=== PATIENT | male | born 1965 | race Two or more races ===

== ENCOUNTER 2021-03-10 11:14 | Inpatient (IN) | payer MEDICAID, OTHER ==
[~2021-03-10] VITALS: Ht 165.1 cm; Wt 64.0 kg
[2021-03-10] MEDS ORDERED: ASPirin 81 mg TAB PO ONE (11:45)
[2021-03-10 12:33] LABS: Basophils # (auto) 0 10 ^3/uL (0-0.2); Basophils % (auto) 0.6 % (0.0-2.0); Eosinophils # (auto) 0.2 10 ^3/uL (0-0.8); Eosinophils % (auto) 3.1 % (0.0-7.0); Hematocrit 46.5 % (41.0-53.0); Hemoglobin 16.4 g/dL (13.5-17.5); Lymphocytes # (auto) 3.1 10 ^3/uL (0.4-5.4); Lymphocytes % (auto) 39.9 % (10.0-50.0); Mean Corpuscular Hemoglobin 32.8 pg (28.0-32.0); Mean Corpuscular Hgb Conc. 35.3 g/dL (32.0-36.0); Mean Corpuscular Volume 92.9 fL (80.0-100.0); Monocytes # (auto) 0.5 10 ^3/uL (0-1.3); Monocytes % (auto) 6.1 % (0.0-12.0); Neutrophils % (auto) 50.3 % (37.0-80.0); Nucleated Red Blood Cells % 0.2 %; Red Cell Distribution Width 12.8 % (11.8-14.3); White Blood Cell 7.9 10^3/uL (4.4-10.8)
[2021-03-10 12:44] LABS: Albumin 3.2 g/dL (3.4-5.0); Calcium 8.6 mg/dL (8.5-10.1); Magnesium 2.3 mg/dL (1.6-2.6); Potassium 4.2 mmol/L (3.5-5.1)
[2021-03-10 12:52] LABS: BUN/Creatinine Ratio 17.6; Bilirubin, Total 0.4 mg/dL (0.2-1.0); Total Protein 7.5 g/dL (6.4-8.2)
[2021-03-10] MEDS ORDERED: NITROGLYCERIN 0.4 MG SL TAB SL PRN (13:45)
[2021-03-10] MEDS ORDERED: hydrALAZINE HCL 20 MG/ML VL IV PRN (13:45)
[2021-03-10] MEDS ORDERED: ACETAMINOPHEN 500 MG TAB PO PRN (13:45)
[2021-03-10] MEDS ORDERED: HYDROcodone-ACET 5/325MG TAB PO PRN (13:45)
[2021-03-10] MEDS ORDERED: MORPHINE SULFATE INJECTION 2 MG/ML SYRG IV ONE ×2 (13:45)
[2021-03-10] MEDS ORDERED: NITROGLYCERIN 0.4 MG SL TAB SL ONE ×2 (13:45)
[2021-03-10] MEDS ORDERED: ONDANSETRON HCL 4 MG/2 ML VIAL IV PRN (13:45)
[2021-03-10] MEDS ORDERED: NITROGLYCERIN 0.4MG/HR TOPICAL PATCH TD ONE (13:45)
[2021-03-10] MEDS ORDERED: MORPHINE SULFATE INJECTION 2 MG/ML SYRG IV PRN ×2 (13:45)
[2021-03-10] MEDS: HEPARIN SODIUM (PORCINE) 5000 UNITS/ML 1ML VIAL IV ONE ×2 (14:15→15:32)
[2021-03-10] MEDS ORDERED: CLOPIDOGREL 300 MG TAB PO ONE (14:45)
[2021-03-10 15:03] LABS: Partial Thromboplastin Time 26.5 sec (23.6-33.0)
[2021-03-10 15:27] LABS: Cholesterol 211 mg/dL (< 200)
[2021-03-10 15:30] LABS: HDL Cholesterol 38 mg/dL (40-59); LDL Cholesterol 113 mg/dL (< 100); Triglycerides 371 mg/dL (< 150)
[2021-03-10] MEDS: HEPARIN DRIP/D5W 100UNITS/ML 250 ML IV SCH (15:32)
[2021-03-10] MEDS: ATORVASTATIN 20 MG TAB PO SCH (22:49)
[2021-03-10] MEDS: METOPROLOL TARTRATE 25 MG TAB PO SCH (22:51)
[2021-03-10 22:55] LABS: INR 1.04 (0.9-1.15); Partial Thromboplastin Time 69.7 sec (23.6-33.0)
[2021-03-10 23:48] VITALS: BP 125/86
[2021-03-11] MEDS ORDERED: INFLUENZA QUAD 2021-2022 0.5 ML SYRG IM ONE (00:15)
[2021-03-11 04:46] VITALS: BP 110/64
[2021-03-11 05:43] LABS: Basophils # (auto) 0 10 ^3/uL (0-0.2); Basophils % (auto) 0.6 % (0.0-2.0); Eosinophils # (auto) 0.2 10 ^3/uL (0-0.8); Eosinophils % (auto) 2.7 % (0.0-7.0); Hematocrit 43.1 % (41.0-53.0); Hemoglobin 14.8 g/dL (13.5-17.5); Lymphocytes # (auto) 3.3 10 ^3/uL (0.4-5.4); Lymphocytes % (auto) 39.5 % (10.0-50.0); Mean Corpuscular Hgb Conc. 34.3 g/dL (32.0-36.0); Mean Corpuscular Volume 93.1 fL (80.0-100.0); Monocytes # (auto) 0.5 10 ^3/uL (0-1.3); Monocytes % (auto) 6.2 % (0.0-12.0); Neutrophils # (auto) 4.3 10 ^3/uL (1.6-8.6); Nucleated Red Blood Cells % 0.2 %; Red Blood Cells 4.63 10^6/uL (4.5-5.90); Red Cell Distribution Width 12.8 % (11.8-14.3); White Blood Cell 8.5 10^3/uL (4.4-10.8)
[2021-03-11 06:19] LABS: Potassium 3.7 mmol/L (3.5-5.1)
[2021-03-11 06:25] LABS: BUN/Creatinine Ratio 25.8; Calcium 8.1 mg/dL (8.5-10.1)
[2021-03-11 07:32] LABS: INR 1.01 (0.9-1.15); Partial Thromboplastin Time 49.7 sec (23.6-33.0)
[2021-03-11 08:30] VITALS: BP 117/74
[2021-03-11 09:00] VITALS: BP 117/74
[2021-03-11] MEDS: LISINOPRIL 10 MG TAB PO SCH (10:00)
[2021-03-11] MEDS: METOPROLOL TARTRATE 25 MG TAB PO SCH ×2 (10:00→21:51)
[2021-03-11] MEDS: ASPirin-EC 81 mg tab PO SCH (10:00)
[2021-03-11] MEDS ORDERED: NAPR-505 PO (10:18)
[2021-03-11] MEDS: HEPARIN DRIP/D5W 100UNITS/ML 250 ML IV SCH (13:50)
[2021-03-11] MEDS ORDERED: LIDOCAINE 2%HCL (LOCAL ANESTH.) INJ 20ML MDV ONE (15:29)
[2021-03-11] MEDS ORDERED: IODIXANOL 320MG/ML 100ML BTL IV ONE (15:29)
[2021-03-11] MEDS ORDERED: ANGIOMAX 250 MG VIAL IV ONE (16:30)
[2021-03-11] MEDS ORDERED: MIDAZOLAM HCL 2MG/2ML 2ml VIAL (1mg/ml) ONE (16:31)
[2021-03-11] MEDS ORDERED: fentaNYL CITRATE 100 MCG/2 ML VL ONE (16:31)
[2021-03-11] MEDS ORDERED: SODIUM CHL 0.9% 0 ML ONE (16:31)
[2021-03-11] MEDS ORDERED: VERAPAMIL 2.5MG/ML INJ 2ML VIAL IV ONE (16:31)
[2021-03-11] MEDS ORDERED: IOHEXOL 350 MG/ML 100ML IJ ONE ×2 (16:31→17:25)
[2021-03-11] MEDS ORDERED: CLOPIDOGREL BISULFATE 75 MG TAB ONE (17:28)
[2021-03-11] MEDS ORDERED: ASPirin 81 mg TAB ONE (17:28)
[2021-03-11 21:33] VITALS: BP 126/82
[2021-03-11] MEDS: ATORVASTATIN 20 MG TAB PO SCH (21:51)
[2021-03-12 04:41] VITALS: BP 104/70
[2021-03-12 09:00] VITALS: BP 106/64
[2021-03-12] MEDS: METOPROLOL TARTRATE 25 MG TAB PO SCH (09:21)
[2021-03-12] MEDS: ASPirin-EC 81 mg tab PO SCH (09:21)
[2021-03-12] MEDS: LISINOPRIL 10 MG TAB PO SCH (09:22)
[2021-03-12] MEDS ORDERED: CLOPIDOGREL BISULFATE 75 MG TAB PO SCH (10:00)
[2021-03-12 13:00] VITALS: BP 121/70
[2021-03-12 13:30] VITALS: BP 121/70
== END 2021-03-12 16:35 | disposition home or self-care (01) | DRG 174 ==
LOC: ER 11:14 → EDBD 11:14 → TELE 13:44 → TELE-WESTW 21:03
PROVIDERS: ADMIT Nurse Practitioner Acute Care; ATTEND Family Medicine
PROC: 4A023N7 Measurement of Cardiac Sampling and Pressure, Left Heart, Percutaneous Approach (ICD-10-PCS; principal; 2021-03-11)
PROC: 027136Z Dilation of Coronary Artery, Two Arteries with Three Drug-eluting Intraluminal Devices, Percutaneous Approach (ICD-10-PCS; 2021-03-11)
PROC: B2111ZZ Fluoroscopy of Multiple Coronary Arteries using Low Osmolar Contrast (ICD-10-PCS; 2021-03-11)
PROC: B2151ZZ Fluoroscopy of Left Heart using Low Osmolar Contrast (ICD-10-PCS; 2021-03-11)
DX: I21.4 Non-ST elevation (NSTEMI) myocardial infarction (principal); E44.1 Mild protein-calorie malnutrition; E66.9 Obesity, unspecified; I10 Essential (primary) hypertension; E11.65 Type 2 diabetes mellitus with hyperglycemia; E78.5 Hyperlipidemia, unspecified; I25.10 Atherosclerotic heart disease of native coronary artery without angina pectoris; Z68.29 Body mass index [BMI] 29.0-29.9, adult; Z20.822 Contact with and (suspected) exposure to COVID-19
CPT/HCPCS: 36415; 71046; 80048; 80053; 80061; 82565; 83036; 83735; 83880; 84443; 84484; 84520; 85025; 85610; 85730; 86141; 86850; 86900; 86901; 87426; 92928; 92929; 93005; 93306; 93458; 96365; 96375; 99152; 99153; 99291; C1874; C1887; G0378; J2250; Q9967

== ENCOUNTER 2021-03-14 12:40 | Inpatient (IN) | payer MEDICAID, OTHER ==
[~2021-03-14] VITALS: Ht 165.1 cm; Wt 69.6 kg
[~2021-03-14 12:40] MED LIST: NAPR-505 PO
[2021-03-14] MEDS ORDERED: SODIUM CHLORIDE 0.9% 1,000 ML IV ONE (13:30)
[2021-03-14 14:36] LABS: Basophils # (auto) 0.1 10 ^3/uL (0-0.2); Basophils % (auto) 0.6 % (0.0-2.0); Eosinophils # (auto) 0.2 10 ^3/uL (0-0.8); Hematocrit 45.2 % (41.0-53.0); Hemoglobin 15.4 g/dL (13.5-17.5); Lymphocytes # (auto) 3.5 10 ^3/uL (0.4-5.4); Lymphocytes % (auto) 35.9 % (10.0-50.0); Mean Corpuscular Hemoglobin 31.9 pg (28.0-32.0); Mean Corpuscular Volume 93.8 fL (80.0-100.0); Monocytes # (auto) 0.7 10 ^3/uL (0-1.3); Monocytes % (auto) 7.6 % (0.0-12.0); Neutrophils # (auto) 5.2 10 ^3/uL (1.6-8.6); Neutrophils % (auto) 53.9 % (37.0-80.0); Nucleated Red Blood Cells % 0.1 %; Red Blood Cells 4.82 10^6/uL (4.5-5.90); Red Cell Distribution Width 12.9 % (11.8-14.3); White Blood Cell 9.7 10^3/uL (4.4-10.8)
[2021-03-14 14:40] LABS: Urine Bacteria NONE SEEN /hpf (None Seen); Urine Blood Negative /uL (Negative); Urine Specific Gravity 1.031 (1.001-1.035); Urine WBC <1 /hpf (0 - 3)
[2021-03-14 14:53] LABS: Albumin 2.6 g/dL (3.4-5.0); Calcium 8.2 mg/dL (8.5-10.1); Magnesium 2.1 mg/dL (1.6-2.6); Potassium 3.9 mmol/L (3.5-5.1)
[2021-03-14 14:56] LABS: BUN/Creatinine Ratio 21.6; Bilirubin, Total 0.5 mg/dL (0.2-1.0); Total Protein 7.1 g/dL (6.4-8.2)
[2021-03-14] MEDS ORDERED: ASPirin 81 mg TAB PO ONE (18:00)
[2021-03-14] MEDS ORDERED: NITROGLYCERIN 0.4 MG SL TAB SL PRN (18:45)
[2021-03-14] MEDS ORDERED: DEXTROSE (50%) 50ML SYRG IV PRN (18:45)
[2021-03-14] MEDS ORDERED: ACETAMINOPHEN 500 MG TAB PO PRN (18:45)
[2021-03-14] MEDS ORDERED: ONDANSETRON HCL 4 MG/2 ML VIAL IV PRN (18:45)
[2021-03-14] MEDS ORDERED: hydrALAZINE HCL 20 MG/ML VL IV PRN (18:45)
[2021-03-14] MEDS ORDERED: HYDROcodone-ACET 5/325MG TAB PO PRN (18:45)
[2021-03-14] MEDS ORDERED: MORPHINE SULFATE INJECTION 2 MG/ML SYRG IV PRN ×2 (18:45)
[2021-03-14] MEDS: InsuLIN REG 1unit/0.01ml Soln (100units/ml) SC SCH (22:00)
[2021-03-14] MEDS: METOPROLOL TARTRATE 25 MG TAB PO SCH (22:09)
[2021-03-14] MEDS: ATORVASTATIN 20 MG TAB PO SCH (22:09)
[2021-03-14] MEDS: ACCU-CHEK COMFORT CURVE STRIP VI SCH (22:10)
[2021-03-15] VITALS (7 sets, daily range): BP systolic 113–130; BP diastolic 68–82
[2021-03-15] MEDS ORDERED: CLOP75TA28 PO (02:16)
[2021-03-15] MEDS ORDERED: ATO40T PO (02:16)
[2021-03-15] MEDS ORDERED: METF-929 PO (02:16)
[2021-03-15] MEDS ORDERED: METO25TA5 PO (02:16)
[2021-03-15] MEDS ORDERED: LISI-716 PO (02:16)
[2021-03-15] MEDS ORDERED: ASPI-543 PO (02:16)
[2021-03-15 06:07] LABS: Basophils # (auto) 0.1 10 ^3/uL (0-0.2); Basophils % (auto) 0.6 % (0.0-2.0); Eosinophils # (auto) 0.3 10 ^3/uL (0-0.8); Hematocrit 40.3 % (41.0-53.0); Hemoglobin 13.7 g/dL (13.5-17.5); Lymphocytes # (auto) 3.1 10 ^3/uL (0.4-5.4); Lymphocytes % (auto) 35.5 % (10.0-50.0); Mean Corpuscular Hemoglobin 32.1 pg (28.0-32.0); Mean Corpuscular Volume 94.3 fL (80.0-100.0); Monocytes # (auto) 0.6 10 ^3/uL (0-1.3); Monocytes % (auto) 6.8 % (0.0-12.0); Neutrophils # (auto) 4.7 10 ^3/uL (1.6-8.6); Neutrophils % (auto) 54.1 % (37.0-80.0); Red Blood Cells 4.27 10^6/uL (4.5-5.90); Red Cell Distribution Width 12.8 % (11.8-14.3); White Blood Cell 8.7 10^3/uL (4.4-10.8)
[2021-03-15 06:29] LABS: Calcium 8.2 mg/dL (8.5-10.1); Potassium 4.2 mmol/L (3.5-5.1)
[2021-03-15 06:31] LABS: BUN/Creatinine Ratio 21.6
[2021-03-15] MEDS: ACCU-CHEK COMFORT CURVE STRIP VI SCH ×4 (06:31→21:51)
[2021-03-15] MEDS: InsuLIN REG 1unit/0.01ml Soln (100units/ml) SC SCH ×4 (06:49→21:52)
[2021-03-15] MEDS: ASPirin-EC 81 mg tab PO SCH (09:51)
[2021-03-15] MEDS: LISINOPRIL 10 MG TAB PO SCH (09:52)
[2021-03-15] MEDS: METOPROLOL TARTRATE 25 MG TAB PO SCH ×2 (09:53→21:51)
[2021-03-15] MEDS ORDERED: CLOPIDOGREL BISULFATE 75 MG TAB PO ONE ×2 (10:00→11:30)
[2021-03-15] MEDS ORDERED: ENOXAPARIN SOD 100 MG/1 ML SYRINGE SC ONE (21:00)
[2021-03-15] MEDS: ATORVASTATIN 20 MG TAB PO SCH (21:50)
[2021-03-16 03:45] LABS: Basophils # (auto) 0.1 10 ^3/uL (0-0.2); Basophils % (auto) 0.6 % (0.0-2.0); Eosinophils # (auto) 0.3 10 ^3/uL (0-0.8); Eosinophils % (auto) 3.4 % (0.0-7.0); Hematocrit 43.5 % (41.0-53.0); Hemoglobin 14.6 g/dL (13.5-17.5); Lymphocytes # (auto) 3.8 10 ^3/uL (0.4-5.4); Lymphocytes % (auto) 41.5 % (10.0-50.0); Mean Corpuscular Hemoglobin 31.9 pg (28.0-32.0); Mean Corpuscular Hgb Conc. 33.6 g/dL (32.0-36.0); Mean Corpuscular Volume 94.8 fL (80.0-100.0); Monocytes # (auto) 0.6 10 ^3/uL (0-1.3); Monocytes % (auto) 6.6 % (0.0-12.0); Neutrophils # (auto) 4.3 10 ^3/uL (1.6-8.6); Neutrophils % (auto) 47.9 % (37.0-80.0); Nucleated Red Blood Cells % 0.2 %; Red Blood Cells 4.58 10^6/uL (4.5-5.90); Red Cell Distribution Width 12.7 % (11.8-14.3); White Blood Cell 9.1 10^3/uL (4.4-10.8)
[2021-03-16 04:05] LABS: Albumin 2.6 g/dL (3.4-5.0); BUN/Creatinine Ratio 18.1; Calcium 8.2 mg/dL (8.5-10.1); Magnesium 2.1 mg/dL (1.6-2.6); Potassium 3.7 mmol/L (3.5-5.1)
[2021-03-16 04:09] LABS: Bilirubin, Total 0.5 mg/dL (0.2-1.0); Phosphorus 4.3 mg/dL (2.5-4.90); Total Protein 6.8 g/dL (6.4-8.2)
[2021-03-16 04:22] LABS: INR 1.05 (0.9-1.15); Partial Thromboplastin Time 34.3 sec (23.6-33.0)
[2021-03-16 05:00] VITALS: BP 115/74
[2021-03-16] MEDS: InsuLIN REG 1unit/0.01ml Soln (100units/ml) SC SCH ×2 (07:00→11:42)
[2021-03-16] MEDS: ACCU-CHEK COMFORT CURVE STRIP VI SCH ×2 (07:03→11:41)
[2021-03-16 09:00] VITALS: BP 107/61
[2021-03-16] MEDS: ASPirin-EC 81 mg tab PO SCH (09:51)
[2021-03-16] MEDS: METOPROLOL TARTRATE 25 MG TAB PO SCH (09:52)
[2021-03-16] MEDS: LISINOPRIL 10 MG TAB PO SCH (09:53)
[2021-03-16] MEDS ORDERED: ENOXAPARIN SOD 100 MG/1 ML SYRINGE SC SCH (10:00)
[2021-03-16] MEDS ORDERED: CLOPIDOGREL BISULFATE 75 MG TAB PO SCH (10:00)
[2021-03-16 13:00] VITALS: BP 113/71
== END 2021-03-16 15:30 | disposition home or self-care (01) | DRG 190 ==
LOC: ER 12:40 → TELE 18:36 → TELE-CENTR 23:31
PROVIDERS: ADMIT Nurse Practitioner Acute Care; ATTEND Internal Medicine
DX: I21.4 Non-ST elevation (NSTEMI) myocardial infarction (principal); E88.09 Other disorders of plasma-protein metabolism, not elsewhere classified; E11.65 Type 2 diabetes mellitus with hyperglycemia; E03.9 Hypothyroidism, unspecified; I25.10 Atherosclerotic heart disease of native coronary artery without angina pectoris; I10 Essential (primary) hypertension; E66.9 Obesity, unspecified; E78.5 Hyperlipidemia, unspecified; Z20.822 Contact with and (suspected) exposure to COVID-19; Z68.25 Body mass index [BMI] 25.0-25.9, adult; Z95.5 Presence of coronary angioplasty implant and graft
CPT/HCPCS: 36415; 36600; 71045; 80048; 80053; 81001; 82010; 82805; 82962; 83735; 83880; 84100; 84443; 84484; 85025; 85610; 85730; 86141; 87426; 93005; 96360; 96361; G0378; J1815

== ENCOUNTER 2021-06-11 16:32 | Emergency (ER) | payer MEDICAID, OTHER ==
[~2021-06-11] VITALS: Ht 162.6 cm; Wt 59.0 kg
[~2021-06-11 16:32] MED LIST changes: +ASPI-543 PO; +ATO40T PO; +CLOP75TA28 PO; +LISI-716 PO; +METF-929 PO; +METO25TA5 PO
[2021-06-11 16:55] VITALS: BP 127/76
== END 2021-06-12 06:22 | disposition left against medical advice (07) ==
LOC: ER 16:37
DX: Z76.0 Encounter for issue of repeat prescription (principal); Z53.21 Procedure and treatment not carried out due to patient leaving prior to being seen by health care provider

== ENCOUNTER 2022-06-19 01:08 | Emergency (ER) | payer MEDICAID ==
[~2022-06-19] VITALS: Ht 162.6 cm; Wt 72.0 kg
[2022-06-19] MEDS ORDERED: ONDANSETRON HCL 4 MG/2 ML VIAL IV ONE (02:30)
[2022-06-19] MEDS ORDERED: LIDOCAINE 1% HCL (LOCAL ANESTH.) INJ 20ML MDV ID ONE (02:30)
[2022-06-19] MEDS ORDERED: MORPHINE SULFATE 4 MG/ML SYR/VIAL IV ONE (02:30)
[2022-06-19] MEDS ORDERED: cefTRIAXone 1GM/50ML D5W 50 ML IV ONE (04:30)
[2022-06-19] MEDS ORDERED: TETANUS-DIPTH-ACEL PERTUSSIS 0.5ML SYR Tdap IM ONE (04:30)
[2022-06-19 07:00] VITALS: BP 116/71
== END 2022-06-19 07:32 | disposition home or self-care (01) ==
LOC: EDBD 01:08 → ER 01:08 → EEVIPCON 01:08 → ER 07:00
DX: S01.01XA Laceration without foreign body of scalp, initial encounter (principal); S06.0X0A Concussion without loss of consciousness, initial encounter; I10 Essential (primary) hypertension; E78.5 Hyperlipidemia, unspecified; E11.9 Type 2 diabetes mellitus without complications; Z23 Encounter for immunization; Y04.2XXA Assault by strike against or bumped into by another person, initial encounter; Y93.89 Activity, other specified; Y92.89 Other specified places as the place of occurrence of the external cause; Y99.8 Other external cause status
CPT/HCPCS: 12002; 70450; 72125; 90471; 90715; 96365; 96375; 99285; J0696; J2001; J2270; J2405

== ENCOUNTER 2022-06-26 14:16 | Emergency (ER) | payer MEDICAID ==
[2022-06-26] MEDS ORDERED: CEPH-510 PO (16:02)
== END 2022-06-26 18:16 | disposition home or self-care (01) ==
LOC: ER 14:16
DX: S01.01XD Laceration without foreign body of scalp, subsequent encounter (principal); E11.9 Type 2 diabetes mellitus without complications; I10 Essential (primary) hypertension; Z79.899 Other long term (current) drug therapy; Z98.890 Other specified postprocedural states; X58.XXXD Exposure to other specified factors, subsequent encounter